=== PATIENT | female | born 1950 | race African-American/Black ===

== ENCOUNTER 2017-09-21 15:15 | Inpatient (IN) | payer OTHER ==
[~2017-09-21] VITALS: Ht 157.5 cm; Wt 56.3 kg
--- NOTE | ~2017-09-21 | PLAN ---
[facility] [place] [address] REHAB UNIT PLAN OF CARE Name: SUNNY MILLER Room #: 514-P ADM IN M.R.#: [id number] Admission: 09/22/17 Attend Phys: Jamie Castaneda MD Discharge: Date of : 54 Report #: [id number] THIS REPORT FOR: //name// CC: Jamie Castaneda [facility] physician/PCP HISTORY: Please see Sophia Pablo's History and physical. She has been admitted to [facility] from [facility] with complaints of worsening acute blindness for 1-2 months and general weakness. MRI showed a small brainstem CVA with some ischemic changes. She was evaluated by Neurology and Ophthalmology. We do not have an Ophthalmology report, but from discussion with the nursing staff over at [place]. Ophthalmology was noted to have indicated that the acute blindness could be a result from the brainstem CVA and they would like to follow up as an outpatient in the next few weeks. Neurology suspected that a possible conversion syndrome could be part of the reason for the acute blindness. She was admitted for acute in-hospital inpatient rehabilitation. Past medical history, past surgical history, habits, social history are all as per the nurse practitioner dictation. MEDICATIONS: Include vitamins, herbals supplements. Please see the full list. REVIEW OF SYSTEMS: She has limited verbalization. No complaints of chest pain, shortness of breath, abdominal discomfort. PHYSICAL EXAMINATION: GENERAL: She is alert. VITAL SIGNS: Temperature 98.2, pulse 102, respirations 18, blood pressure 146/54. CHEST: Sounded clear to auscultation. CARDIAC: Regular rate and rhythm. ABDOMEN: Bowel sounds positive, nontender. She is of slender build, small statured. PSYCHIATRIC: She is not fully cooperative with the exam. It was difficult to assess her vision. When I talk with her, she does not look at me initially, but later her focus will be on me. NEUROLOGIC: She has uncoordinated movements of both upper extremities with some jerking. Appears to have strength at least a grade 3+/5. Lower extremities, also uncoordinated movements, with strength at least a grade 3+ to 4-/5. No calf swelling. DTRs one to trace. She needed assist to mod to max to try to sit at the edge of the bed. She has poor sitting balance with uncoordinated movements, leaning to the left or right or backwards. She needed assistance of max assist coming to stand to try to transfer into the wheelchair. She appears to have lateral sway and definite decreased balance. She does know the year and can follow some basic 1 step commands, but is a limited historian. [facility] [address] [place] [address] REHAB UNIT PLAN OF CARE Name: SUNNY MILLER Room #: 514-P ADM IN M.R.#: [id number] Admission: 09/22/17 Attend Phys: Jamie Castaneda MD Discharge: Date of : 54 Report #: [id number] ASSESSMENT: 1. Left brain stem cerebrovascular accident. 2. Medical complexity with generalized debilitation. 3. Blindness. 4. Nonischemic cardiomyopathy. 5. Gait instability. 6. Chronic systolic heart failure. 7. Hypertension. 8. History of gout. 9. Degenerative joint disease with history of knee replacement. 10. Premorbid peripheral neuropathy. 11. Chronic obstructive pulmonary disease. ASSESSMENT: From a postadmission physician evaluation perspective, there are no relevant changes since the preadmission screening. Please see the above review of prior and current medical and functional conditions and comorbidities. Please see the patient's previous and current functional status. As far as risk of complication, she has multiple medical comorbidities as noted above. The initial plan of care involves the interdisciplinary acute inpatient rehabilitation program with goal of maximizing the patient's functional independence, so that she can hopefully return back to her prior living situation. Measurable functional goals would be for the patient to become modified independent with transfers, mobility, ADLs, cognition, communication, so we can hopefully return back to the home setting. Prognosis is reasonably good with estimated length of stay probably at least 2-3 weeks and potentially longer if needed. Potential barriers would include her multiple medical comorbidities and decreased functional status. Neurology and Psychiatry have been consulted while she is here at [facility] to try to get further insight into her condition. She will need to follow up with Dr. Solis and with Ophthalmology from [place] as they had recommended as an outpatient. I had a long discussion with the family including the and the niece as far as her current status, the brain stem CVA realistic expectations, and the focus on trying to improve her functional independence while she is here on rehabilitation with the hopes that we can get her back to the home setting. PLAN: Her overall plan of care is based on the preadmission screen, post-admission physician evaluation and information garnered from therapy assessments. 1. Estimated length of stay is at least 2 to 3 weeks. 2. Medical prognosis is reasonably good. 3. Anticipated interventions includes the interdisciplinary acute inpatient rehabilitation program with PT and OT and speech, rehabilitation nursing assisting regarding medication management, skin care prophylaxis, bowel and bladder issues and nursing education. The consultant teacher physicians are involved. [facility] [address] [place] [address] REHAB UNIT PLAN OF CARE Name: SUNNY MILLER Room #: 514-P [facility] IN ..#: [id number] Admission: 09/22/17 Attend Phys: Jamie Castaneda MD Discharge: Date of : 54 Report #: [id number] 4. Anticipated functional outcomes would be for the patient to become modified independent with transfers, mobility, ADLs, cognition and communication or at least to the point where she is at more of a min assist level where family can handle her back in the home setting. 5. Discharge destination is back home with family. 6. Expected therapy by discipline includes PT, OT and speech 1 hour per day each five days a week throughout the duration of the acute inpatient rehabilitation stay. <ELECTRONICALLY SIGNED> By: Jamie Castaneda MD 09/29/17 1020 [id number] Jamie Castaneda MD /nt
--- NOTE | ~2017-09-21 | EEG ---
[facility] [place] [address] ELECTROENCEPHALOGRAM Name: SUNNY MILLER Room #: 509-P ADM IN M.R.#: [id number] Admission: 09/22/17 Attend Phys: Jamie Castaneda MD Discharge: Date of : 54 Report #: [id number] THIS REPORT FOR: //name// CC: Jamie Castaneda [facility] physician/PCP DATE OF SERVICE: 09/23/2017 This patient is being evaluated for blindness and CVA. EEG was done by placing the electrodes by standard 10-20 system of electrode placement. Both referential and sequential montages were used for recording. Background activity in this patient's EEG is very poorly formed. It is about 5-6 Hz and 30 microvolt. It is slow on occasion. Photic stimulation is unremarkable. IMPRESSION: This is an abnormal EEG because it is disorganized and poorly formed. That is a nonspecific abnormality, which can occur with encephalopathy, effect of psychotropic medication, dementia, etc. Clinical correlation is recommended. <ELECTRONICALLY SIGNED> By: Vicente Santiago MD 09/24/17 1201 [id number] 1427 Vicente Santiago MD /nt
--- NOTE | ~2017-09-21 | H ---
[facility] [place] [address] HISTORY AND PHYSICAL Name: SUNNY MILLER Room #: 509-P ADM IN M.R.#: [id number] Admission: 09/22/17 Attend Phys: Jamie Castaneda MD Discharge: Date of : 54 Report #: [id number] THIS REPORT FOR: //name// CC: Jamie Castaneda [facility] physician/PCP DATE OF SERVICE: 09/22/2017 HISTORY OF PRESENT ILLNESS: This is a 67-year-old female who has now been admitted to [facility] inpatient rehabilitation unit after an acute hospital stay at [facility]. She initially presented to [facility] on 09/18/2017 with complaints of worsening acute blindness x 1-2 months and general weakness. She underwent a repeat MRI as this was her third admission for the acute blindness. The MRI showed a small brainstem CVA with some ischemic changes that were not all seen on prior MRI study. She was evaluated by Neurology and Ophthalmology. Ophthalmology felt the acute blindness could be a result from the brainstem CVA and they would like follow up as an outpatient in the next few weeks. Neurology suspects that a possible conversion syndrome could be part of the reason for the acute blindness. During her stay, she did have an elevated troponin and it was felt secondary to demand ischemia. She has history of moderate to severe aortic insufficiency and an EF of 35-40%, seen on echo done in 08/2017. Lexiscan nuclear stress test at that time showed no significant ischemia. She also has well-compensated nonischemic cardiomyopathy and chronic systolic heart failure. Cardiology would like to repeat echocardiogram once the patient rehabs from her stroke. Due to the patient's generalized weakness and need for acute medical monitoring, she has now been admitted to inpatient rehab for both physical, occupational and speech therapies. PAST MEDICAL HISTORY: Hypertension, COPD, pneumonia, peripheral neuropathy, gastritis, history of hepatitis A, B and C, osteoarthritis, history of gout. PAST SURGICAL HISTORY: Total knee replacement, hysterectomy. HABITS: No alcohol use. No tobacco use. Positive for marijuana use. SOCIAL HISTORY: She is and lives with her in a single karen house. Three stairs to enter from the front of the house with a railing. There are flight of stairs to the basement garage. She was independent for ADLs and utilized a quad cane premorbidly. Due to the acute onset blindness her son had become a caregiver 5 days a week and performed all the IADLs and the driving. It seems prior to the acute blindness she had been independent. CURRENT MEDICATIONS: Albuterol p.r.n., allopurinol 300 mg daily, aspirin 325 daily, Lipitor 20 mg daily, Coreg 12.5 mg twice a day, Flexeril 10 mg t.i.d., Voltaren gel twice a day, Flonase 2 sprays in the nares daily, lidocaine patch [facility] [address] [place] [address] HISTORY AND PHYSICAL Name: SUNNY MILLER Room #: 509-P [facility] IN M.R.#: [id number] Admission: 09/22/17 Attend Phys: Jamie Castaneda MD Discharge: Date of : 54 Report #: [id number], multivitamin daily, MiraLax 17 grams by mouth daily, triamcinolone cream twice a day p.r.n., Norvasc 10 mg daily, hydralazine 25 mg 3 times a day, Norvasc 10 mg daily, melatonin 1 tablet at bedtime. REVIEW OF SYSTEMS: Review of systems is limited at this time. The patient is not answering all questions, but she does deny shortness of air, cough, chest pain, nausea, constipation or joint pains. She does report she can see some shapes and colors. When I asked her what color my white coat was, she reported that it was blue. PHYSICAL EXAMINATION: VITAL SIGNS: 98/68, pulse 72, respirations 18, afebrile. GENERAL: She is awake. She is alert. HEENT: Her eyes are open wide, she appears to be having a decreased blink response. Sclerae appear cloudy. Head is normocephalic. CHEST: Lungs are clear to auscultation. No crackle, no wheeze. CARDIAC: S1, S2. Regular rate and rhythm. ABDOMEN: Bowel sounds are positive. Soft, nontender, nondistended. GENITOURINARY: Deferred. EXTREMITIES: She has no lower extremity edema. She has negative Homans sign and no footdrop. She is able to lift both lower extremities and to gravity. Bilateral upper extremities, she has better functional range of motion in the right upper extremity compared to the left upper extremity. She has very uncoordinated type movements of her upper extremities, jerking as she is moving. No tremors at rest. She does have equal content strategist bilateral. Her sensation appears intact bilateral from what I could assess. Again, the patient is a poor historian and not all cooperative with exam. She is sit to stand, mod assist. She is ambulating 125 feet with mod assist and hand hold device. She has an ataxic, slow delfina, short step length, increased lateral sway. Bed mobility is mod assist. NEUROLOGIC: She is oriented to person. She knows the year is 2017 and that Freddie Hankins is the president. She is inaccurate on location and situation and day of the week. She is a poor historian. LABORATORY DATA: Carotid bilateral Dopplers done on 09/19/2017 show no evidence of hemodynamic significant stenosis. MRI of the brain on 09/19/2017 shows area of signal abnormality and diffusion weighted abnormality in the left brainstem. In retrospect, there may have been very early similar abnormality on the previous MRI, all this is much more apparent now. This may indicate that there were early ischemic changes occurring at that time and this now may be a subacute abnormality. No other acute abnormality is seen. IMPRESSION: 1. Left brainstem cerebrovascular accident, ischemic. 2. Medical complexity with generalized debility. 3. Gait instability. [facility] [address] [place] [address] HISTORY AND PHYSICAL Name: SUNNY MILLER Room #: 509-P [facility] IN M.R.#: [id number] Admission: 09/22/17 Attend Phys: Jamie Castaneda MD Discharge: Date of : 54 Report #: [id number] 4. Blindness. 5. Nonischemic cardiomyopathy. 6. Chronic systolic heart failure. 7. Hypertension. 8. History of gout. 9. Degenerative joint disease, history of knee replacement. 10. Peripheral neuropathy, premorbid. 11. Chronic obstructive pulmonary disease. PLAN: The patient has been admitted to acute inpatient rehabilitation for physical, occupational and speech therapies. We will have the hospitalist consultants follow for acute medical issues. We will also ask Neurology and Psychiatry to follow the patient while she is here. She will also undergo neuropsychology testing. She will need to follow up outpatient with Ophthalmology for her blindness in approximately 3 weeks. She will also need to follow up outpatient with Neurology once she discharges from rehabilitation. She will also need to follow up outpatient with Cardiothoracic Surgery for a repeat echocardiogram and to further evaluate her aortic insufficiency. <ELECTRONICALLY SIGNED> By: WILFRID Méndez 09/24/17 1432 [id number] 1632 WILFRID Méndez /nt
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
[2017-09-22] MEDS ORDERED: ALBUTEROL2.5 MG/31 (14:30)
[2017-09-22] MEDS ORDERED: ALLOPURINOL 10100 M1 PO (14:46)
[2017-09-22] MEDS ORDERED: ASA5UEC PO (14:47)
[2017-09-22] MEDS ORDERED: LIPITOR 20 MG T20 M1 PO (14:48)
[2017-09-22] MEDS ORDERED: CARVEDILOL12.5 MG PO (14:49)
[2017-09-22] MEDS ORDERED: FLEXERIL PO (14:50)
[2017-09-22] MEDS ORDERED: VOLTAREN GEL 1100 G1 TOP (14:51)
[2017-09-22] MEDS ORDERED: FLONASE 0.05%50 MCG NASAL (14:53)
[2017-09-22] MEDS ORDERED: LIDOCAINE PAIN1 EACH TRANSDERM (14:55)
[2017-09-22] MEDS ORDERED: THERA M PLUS T1 EAC2 PO (15:00)
[2017-09-22] MEDS ORDERED: MIRALAX17 GM PO (15:02)
[2017-09-22] MEDS ORDERED: NORVASC5 M1 PO (15:07)
[2017-09-22] MEDS ORDERED: TRIAMCINOLONE A80 G2 TOP (15:14)
[2017-09-22] MEDS ORDERED: HYDRALAZINE 2525 MG PO (15:15)
[2017-09-22] MEDS ORDERED: NORCO 7.5-3251 EACH PO (15:19)
[2017-09-22 15:20] VITALS: BP 98/67
[2017-09-22] MEDS ORDERED: MELATONIN3 MG PO (15:20)
[2017-09-22 15:49] VITALS: BP 98/67
[2017-09-22 19:54] VITALS: BP 146/54
[2017-09-23 05:42] LABS: HEMATOCRIT 37.8 % (37.0-47.0); HEMOGLOBIN 12.6 gm/dL (12.0-15.0); MCH 28.6 pg (26.0-34.0); MCHC 33.3 g/dL (28.0-37.0); MCV 85.8 fL (80.0-100.0); RBC 4.41 mil/uL (4.20-5.00); RDW 13.3 % (10.5-14.5); WBC 7.4 thou/uL (4.0-11.0)
[2017-09-23 05:55] LABS: CALCIUM 10.5 mg/dL (8.5-10.1); CREATININE 1.3 mg/dL (0.6-1.0)
[2017-09-23 08:30] VITALS: BP 110/68
[2017-09-23 10:55] LABS: TSH 3.745 uIU/mL (0.358-3.740)
[2017-09-23 20:05] VITALS: BP 107/71
[2017-09-24 07:50] VITALS: BP 136/68
[2017-09-24 19:10] VITALS: BP 116/68
[2017-09-25 03:40] VITALS: BP 130/75
[2017-09-25 07:30] VITALS: BP 134/86
[2017-09-25 09:55] LABS: ABSOLUTE NEUTROPHILS 4.3 thou/uL (1.4-8.2); BASOPHILS 1.1 % (0.0-2.0); EOSINOPHILS 2.7 % (0.0-3.0); HEMATOCRIT 39.5 % (37.0-47.0); HEMOGLOBIN 13.1 gm/dL (12.0-15.0); LYMPHOCYTES 33.4 % (24.0-44.0); MCH 28.4 pg (26.0-34.0); MCHC 33.2 g/dL (28.0-37.0); MCV 85.6 fL (80.0-100.0); MONOCYTES 6.4 % (1.0-8.0); PLATELET COUNT 367 thou/uL (150-400); POLYS 56.4 % (36.0-66.0); RBC 4.62 mil/uL (4.20-5.00); RDW 13.3 % (10.5-14.5); WBC 7.6 thou/uL (4.0-11.0)
[2017-09-25 10:23] LABS: ALBUMIN 3.7 g/dL (3.4-5.0); CALCIUM 10.9 mg/dL (8.5-10.1); CREATININE 1.7 mg/dL (0.6-1.0); TOTAL BILIRUBIN 0.3 mg/dL (<0.1-1.0); TOTAL PROTEIN 9.6 g/dL (6.4-8.2)
[2017-09-25 19:38] VITALS: BP 121/70
[2017-09-26 19:25] VITALS: BP 128/74
[2017-09-27 07:25] VITALS: BP 167/81
[2017-09-27 08:37] VITALS: BP 153/84
[2017-09-27 13:33] LABS: HEMATOCRIT 37.5 % (37.0-47.0); HEMOGLOBIN 12.2 gm/dL (12.0-15.0); MCH 27.9 pg (26.0-34.0); MCHC 32.6 g/dL (28.0-37.0); MCV 85.4 fL (80.0-100.0); RBC 4.39 mil/uL (4.20-5.00); RDW 13.2 % (10.5-14.5)
[2017-09-27 13:50] LABS: CALCIUM 10.1 mg/dL (8.5-10.1); CREATININE 1.6 mg/dL (0.6-1.0); MAGNESIUM 2.2 mg/dL (1.8-2.4); POTASSIUM 3.5 mmol/L (3.5-5.1)
[2017-09-27 19:16] VITALS: BP 126/69
[2017-09-28 03:38] LABS: HEMATOCRIT 35.8 % (37.0-47.0); HEMOGLOBIN 11.9 gm/dL (12.0-15.0); MCH 28.1 pg (26.0-34.0); MCHC 33.1 g/dL (28.0-37.0); MCV 84.8 fL (80.0-100.0); RBC 4.23 mil/uL (4.20-5.00); WBC 8.5 thou/uL (4.0-11.0)
[2017-09-28 03:43] LABS: CREATININE 1.5 mg/dL (0.6-1.0); MAGNESIUM 2.2 mg/dL (1.8-2.4); POTASSIUM 3.5 mmol/L (3.5-5.1)
[2017-09-28 07:46] VITALS: BP 138/76
[2017-09-28 11:51] LABS: CHOLESTEROL 156 mg/dL (<200); HDL CHOLESTEROL 47 mg/dL (>40); LDL CHOLESTEROL 88 mg/dL (<100); TC:HDL 3.3 Ratio (Not establshd); TRIGLYCERIDE 105 mg/dL (<150); VLDL 21 mg/dL (<40)
[2017-09-28 19:25] VITALS: BP 155/85
[2017-09-29 05:56] LABS: HEMATOCRIT 37.4 % (37.0-47.0); HEMOGLOBIN 12.2 gm/dL (12.0-15.0); MCH 28.1 pg (26.0-34.0); MCHC 32.7 g/dL (28.0-37.0); MCV 86.1 fL (80.0-100.0); RBC 4.35 mil/uL (4.20-5.00); RDW 13.7 % (10.5-14.5); WBC 8.2 thou/uL (4.0-11.0)
[2017-09-29 06:06] LABS: CALCIUM 9.9 mg/dL (8.5-10.1); CREATININE 1.6 mg/dL (0.6-1.0); MAGNESIUM 2.3 mg/dL (1.8-2.4); POTASSIUM 3.6 mmol/L (3.5-5.1)
[2017-09-29 07:30] VITALS: BP 120/71
[2017-09-29 19:50] VITALS: BP 136/72
[2017-09-30 07:10] LABS: HEMATOCRIT 36.9 % (37.0-47.0); MCH 27.8 pg (26.0-34.0); MCHC 32.5 g/dL (28.0-37.0); MCV 85.6 fL (80.0-100.0); RBC 4.31 mil/uL (4.20-5.00); RDW 13.4 % (10.5-14.5); WBC 8.5 thou/uL (4.0-11.0)
[2017-09-30 07:32] LABS: CALCIUM 10.1 mg/dL (8.5-10.1); CREATININE 1.9 mg/dL (0.6-1.0); MAGNESIUM 2.3 mg/dL (1.8-2.4); POTASSIUM 3.1 mmol/L (3.5-5.1)
[2017-09-30 08:00] VITALS: BP 104/76
[2017-09-30 20:00] VITALS: BP 99/62
[2017-10-01 07:04] LABS: HEMATOCRIT 35.9 % (37.0-47.0)
[2017-10-01 07:05] LABS: HEMOGLOBIN 11.5 gm/dL (12.0-15.0); MCH 27.7 pg (26.0-34.0); MCHC 31.9 g/dL (28.0-37.0); MCV 86.6 fL (80.0-100.0); RBC 4.14 mil/uL (4.20-5.00); RDW 13.7 % (10.5-14.5); WBC 14.8 thou/uL (4.0-11.0)
[2017-10-01 07:18] LABS: CALCIUM 10.1 mg/dL (8.5-10.1); CREATININE 1.8 mg/dL (0.6-1.0); MAGNESIUM 2.3 mg/dL (1.8-2.4); POTASSIUM 3.3 mmol/L (3.5-5.1)
[2017-10-01 07:52] VITALS: BP 112/50
[2017-10-01 11:19] LABS: URINE BILIRUBIN NEGATIVE (Negative); URINE BLOOD NEGATIVE (Negative); URINE CLARITY CLOUDY; URINE COLOR YELLOW; URINE GLUCOSE-RANDOM* NEGATIVE (Negative); URINE KETONES NEGATIVE (Negative); URINE NITRITE-REFLEX NEGATIVE (Negative); URINE PROTEIN (DIPSTICK) 2+ (Negative); URINE SPECIFIC GRAVITY >= 1.030 (1.005-1.035); URINE UROBILINOGEN 0.2 E.U./dl (0.2-1.0)
[2017-10-01 11:21] LABS: URINE LEUKOCYTES-REFLEX 1+ (Negative)
[2017-10-01 11:46] LABS: BACTERIA-REFLEX >30 Many /HPF (None Seen); CASTS None Seen /LPF (None Seen); CRYSTALS None Seen /LPF (None Seen); SQUAMOUS None Seen /LPF (0-3); URINE RBC None Seen /HPF (0-2)
[2017-10-01 20:00] VITALS: BP 116/78
[2017-10-02 08:40] VITALS: BP 110/55
[2017-10-02 20:43] VITALS: BP 151/63
[2017-10-03 08:30] VITALS: BP 94/48
[2017-10-03 12:40] VITALS: BP 131/60
[2017-10-03 12:51] VITALS: BP 131/60
[2017-10-03 21:28] VITALS: BP 120/51
[2017-10-04 07:30] LABS: HEMATOCRIT 35.4 % (37.0-47.0); HEMOGLOBIN 11.4 gm/dL (12.0-15.0); MCH 27.6 pg (26.0-34.0); MCHC 32.1 g/dL (28.0-37.0); MCV 85.9 fL (80.0-100.0); RBC 4.12 mil/uL (4.20-5.00); RDW 13.7 % (10.5-14.5); WBC 8.6 thou/uL (4.0-11.0)
[2017-10-04 07:46] LABS: CREATININE 1.9 mg/dL (0.6-1.0); POTASSIUM 3.9 mmol/L (3.5-5.1)
[2017-10-04 08:01] VITALS: BP 100/61
[2017-10-05 08:00] VITALS: BP 143/74
[2017-10-05] MEDS ORDERED: CIPRO250 M1 PO (14:25)
[2017-10-05] MEDS ORDERED: NEURONTIN 300M300 M2 PO (14:26)
[2017-10-05] MEDS ORDERED: ASA5UEC PO (14:26)
[2017-10-05] MEDS ORDERED: COREG6.25 MG PO (14:26)
[2017-10-05] MEDS ORDERED: REGLAN 5 MG TAB5 MG PO (14:27)
[2017-10-05] MEDS ORDERED: REMERON15 MG PO (14:27)
[2017-10-05] MEDS ORDERED: PROTONIX40 M1 PO (14:27)
== END 2017-10-05 17:06 | DRG 65 ==
PROVIDERS: Hospitalist; Internal Medicine; Nurse Practitioner; Nurse Practitioner Family; Physical Medicine & Rehabilitation; Psychiatry & Neurology Neurology
DX: I63.9 Cerebral infarction, unspecified (principal); I42.9 Cardiomyopathy, unspecified; I50.22 Chronic systolic (congestive) heart failure; N17.9 Acute kidney failure, unspecified; E46 Unspecified protein-calorie malnutrition; H53.133 Sudden visual loss, bilateral; N39.0 Urinary tract infection, site not specified; I67.82 Cerebral ischemia; F10.10 Alcohol abuse, uncomplicated; R53.81 Other malaise; I11.0 Hypertensive heart disease with heart failure; M10.9 Gout, unspecified; Z96.653 Presence of artificial knee joint, bilateral; J44.9 Chronic obstructive pulmonary disease, unspecified; R26.9 Unspecified abnormalities of gait and mobility; R21 Rash and other nonspecific skin eruption; G62.9 Polyneuropathy, unspecified; R41.9 Unspecified symptoms and signs involving cognitive functions and awareness; F41.9 Anxiety disorder, unspecified; Z60.2 Problems related to living alone; R41.0 Disorientation, unspecified; E87.6 Hypokalemia; R41.89 Other symptoms and signs involving cognitive functions and awareness; Z87.891 Personal history of nicotine dependence; Z87.01 Personal history of pneumonia (recurrent); Z90.710 Acquired absence of both cervix and uterus; Z88.8 Allergy status to other drugs, medicaments and biological substances; Z91.018 Allergy to other foods; Z88.2 Allergy status to sulfonamides; Z88.6 Allergy status to analgesic agent; Z87.19 Personal history of other diseases of the digestive system; Z86.19 Personal history of other infectious and parasitic diseases; Z68.22 Body mass index [BMI] 22.0-22.9, adult
CPT/HCPCS: 10112